=== PATIENT | female | born 1970 | race Caucasian/White ===

== ENCOUNTER 2020-04-09 10:13 | Emergency (ER) | payer BC | END 2020-04-09 11:54 | disposition home or self-care (01) | LOC: JVIRT 10:13 | DX: Z11.59 Encounter for screening for other viral diseases (principal) | CPT/HCPCS: C9803; Q3014-GT; U0003 ==

== ENCOUNTER 2020-05-29 14:48 | Emergency (ER) | payer BC | END 2020-05-29 16:45 | disposition home or self-care (01) | LOC: JVIRT 14:48 | DX: Z11.52 Encounter for screening for COVID-19 (principal) | CPT/HCPCS: C9803; G2012-GT; U0003 ==